=== PATIENT | female | born 1985 | race African-American/Black ===

== ENCOUNTER 2022-03-23 21:02 | Emergency (ER) | payer BC ==
[~2022-03-23] VITALS: Ht 149.9 cm; Wt 91.0 kg
--- NOTE | 2022-03-23 22:11 | RAD ---
Exam: Right ankle 3 views INDICATION: Twisted ankle, pain TECHNIQUE: Frontal, lateral and oblique views of the right ankle Comparisons: None FINDINGS: Soft tissue swelling overlying the lateral malleolus. Bone mineralization is normal. Joint spaces are well-maintained. No acute or healed fractures. IMPRESSION: Soft tissue swelling at the ankle without underlying osseous abnormality identified. Electronically signed by: Collins Farah MD (03/23/2022 10:09 PM) [facility]
--- NOTE | 2022-03-23 22:27 | PHYS DOC ---
Past Medical History Past Surgical History: No Surgical History General Adult EDM: Chief Complaint: ANKLE PROBLEM HPI: HPI: Patient is a 36 year old female with history of hypertension presented to the ED today with sharp intermittent 5 out of 10 right lateral ankle pain, symptoms began today after she stepped on something. Patient states pain is worse on weightbearing though she states she is able to ambulate. Denies anything specifically relieving the pain. Review of Systems: Review of Systems: Constitutional: Denies fever or chills. [][] Musculoskeletal: Reports right ankle pain Integument: Denies rash. [] Neurologic: Denies headache, focal weakness or sensory changes. [] Psychiatric: Denies depression or anxiety. [] Heart Score: C/O Chest Pain: N/A Risk Factors: Risk Factors: DM, Current or recent (<one month) smoker, HTN, HLP, family history of CAD, obesity. Risk Scores: Score 0 - 3: 2.5% MACE over next 6 weeks - Discharge Home Score 4 - 6: 20.3% MACE over next 6 weeks - Admit for Clinical Observation Score 7 - 10: 72.7% MACE over next 6 weeks - Early Invasive Strategies Current Medications: Current Medications Medications (Trade) Dose Ordered Sig/Eliz Start Time Stop Time Status Last Admin Dose Admin Acetaminophen/ Hydrocodone Bitart (Lortab 5/325) 1 tab 1X ONCE 03/23/22 22:30 03/23/22 22:31 03/23/22 22:07 1 TAB Naproxen (Naprosyn) 500 mg 1X ONCE 03/23/22 22:30 03/23/22 22:31 03/23/22 22:07 500 MG Allergies: Allergies: Allergies Coded Allergies Type Severity Reaction Last Updated Verified No Known Drug Allergies 03/23/22 No Physical Exam: PE: Constitutional: Well developed, well nourished, no acute distress, non-toxic appearance. [] All Skin: Warm, dry, no erythema, no rash. [] Back: No tenderness, no CVA tenderness. [] Extremities: Right ankle with no obvious deformity, soft tissue swelling noted on the right lateral ankle. Tenderness on palpation of the right lateral ankle. Full range of motion to the right ankle. +2 right pedal pulse. Cap refill less than 2 seconds of right toes. Sensation intact to the right toes Neurologic: Alert and oriented X 3, normal motor function, normal sensory function, no focal deficits noted. [] Psychologic: Affect normal, judgement normal, mood normal. [] Current Patient Data: Vital Signs: Vital Signs Date Time Temp Pulse Resp B/P (MAP) Pulse Ox O2 Delivery O2 Flow Rate FiO2 03/23/22 22:07 18 98 Room Air 03/23/22 21:05 99.1 87 185/100 (128) 99.1 EKG: EKG: [] Radiology/Procedures: Radiology/Procedures: []PROCEDURE: ANKLE RIGHT 3V Exam: Right ankle 3 views INDICATION: Twisted ankle, pain TECHNIQUE: Frontal, lateral and oblique views of the right ankle Comparisons: None FINDINGS: Soft tissue swelling overlying the lateral malleolus. Bone mineralization is normal. Joint spaces are well-maintained. No acute or healed fractures. IMPRESSION: Soft tissue swelling at the ankle without underlying osseous abnormality identified. Electronically signed by: Collins Faria MD (03/23/2022 10:09 PM) [facility] DICTATED and SIGNED BY: COLLINS FARIA MD DATE: 03/23/222207 Course & Med Decision Making: Course & Med Decision Making Pertinent Labs and Imaging studies reviewed. (See chart for details) This a 36-year-old female patient presented to the ED today with right ankle pain that began today after she stepped on something. Right ankle x-rays interpreted by radiologist were negative for any acute findings. Monico wrap and Aircast applied to the right ankle by the ED RN, neurovascular exam done by RN is normal, ice elevation encouraged. Follow-up with Ortho in 1 week. Marie Disclaimer: Marie Disclaimer: This electronic medical record was generated, in whole or in part, using a voice recognition dictation system. Departure Departure Impression: Primary Impression: Right ankle sprain Qualified Codes: S93.401A - Sprain of unspecified ligament of right ankle, initial encounter Disposition: HOME / SELF CARE / HOMELESS Condition: STABLE Referrals: WILLY MICHAELS Jr. DO Follow-up in 1 week if pain persist Patient Instructions: Ankle Sprain Additional Instructions: You were evaluated in the emergency room for right ankle pain, your right ankle x-rays are negative for any acute findings. Ice and elevate the extremity. Take the prescribed medications as needed for pain. Follow-up with your own doctor or the provided orthopedic doctor in 1 week if pain persist Scripts Naproxen (NAPROXEN) 500 Mg Tablet 1 TAB PO BID for pain, #14 TAB 0 Refills Prov: JACKIE NETTLES APRN 03/23/22 JACKIE NETTLES APRN March 23, 2022 22:27
[2022-03-23] MEDS ORDERED: NAPROXEN 500 MG TABLET PO ONE (22:30)
[2022-03-23] MEDS ORDERED: HYDROcodone/APAP 5/325MG 1 TAB TABLET PO ONE (22:30)
[2022-03-23] MEDS ORDERED: NAPR-514 PO (22:31)
[2022-03-23 22:40] VITALS: BP 170/90
== END 2022-03-23 22:38 | disposition home or self-care (01) ==
LOC: ER 21:02
DX: S93.401A Sprain of unspecified ligament of right ankle, initial encounter (principal); W22.8XXA Striking against or struck by other objects, initial encounter; Y93.89 Activity, other specified; Y92.89 Other specified places as the place of occurrence of the external cause; Y99.8 Other external cause status
CPT/HCPCS: 73610; 99283; A6450